=== PATIENT | female | born 1955 | race Caucasian/White ===

== ENCOUNTER 2023-11-09 12:18 | Emergency (ER) | payer MEDICARE, OTHER ==
[2023-11-09] MEDS ORDERED: fentaNYL 50 mcg/mL 1 mL Vial ONE ×4 (12:34→18:03)
[2023-11-09 13:11] LABS: #Basophils 0.2 thou/uL (0.0-0.2); #Lymphocytes 0.6 thou/uL (1.20-3.40); #Monocytes 0.6 thou/uL (0.11-0.59); #Neutrophils 9.2 thou/uL (1.40-6.50); %Basophils 1.5 % (0.0-1.0); %Lymphocytes 5.8 % (21.0-51.0); %Monocytes 5.6 % (0.0-10.0); %Neutrophils 87.1 % (42.0-75.0); Hematocrit 32.2 % (36.0-47.0); Hemoglobin 11.2 g/dL (12.0-16.0); Mean Corpuscular HGB CONC 34.9 g/dL (32.0-36.0); Mean Corpuscular Hemoglobin 32.6 pg (27.0-31.0); Mean Corpuscular Volume 93.5 fl (78.0-98.0); Platelet Count 175 10x3/uL (130-400); RBC Distribution Width 16.2 % (11.5-14.5); Red Blood Cell (RBC) Count 3.44 mill/uL (4.20-5.40); White Blood Cell (WBC) Count 10.5 10x3/uL (4.8-10.8)
[2023-11-09 13:25] LABS: ALT (SGPT) 44 U/L (8-55); AST (SGOT) 38 U/L (5-34); Albumin 4.3 g/dL (3.4-4.8); Alkaline Phosphatase 57 U/L (40-110); Anion Gap 16 mmol/L (10-20); BUN (Urea Nitrogen) 13 mg/dL (9.8-20.1); Bilirubin, Total 2.3 mg/dL (0.2-1.2); Calc. Creatinine Clearance 0 mL/min (70-130); Calcium 9.8 mg/dL (7.8-10.44); Carbon Dioxide 25 mmol/L (23-31); Chloride 97 mmol/L (98-107); Estimated GFR 99; Globulin 3.6 g/dL (2.4-3.5); Glucose 114 mg/dL (80-115); Potassium 4.4 mmol/L (3.5-5.1); Protein, Total 7.9 g/dL (5.8-8.1); Sodium 134 mmol/L (136-145)
[2023-11-09] MEDS ORDERED: Sodium Chloride 0.9% 1,000 ML ONE (14:03)
[2023-11-09 14:21] LABS: INR-International Normal Ratio 1.1; Prothrombin Time 14.2 sec (12.0-14.7)
[2023-11-09] MEDS ORDERED: Pantoprazole 40 MG VIAL ONE (17:28)
== END 2023-11-09 18:12 | disposition short-term general hospital (02) ==
LOC: MADERS 12:18
DX: S72.142A Displaced intertrochanteric fracture of left femur, initial encounter for closed fracture (principal); E80.7 Disorder of bilirubin metabolism, unspecified; F17.210 Nicotine dependence, cigarettes, uncomplicated; W18.30XA Fall on same level, unspecified, initial encounter
CPT/HCPCS: 74176; 80053; 82550; 83605; 85025; 85610; J3010; 36415; 96374; 96375; 96376; C9113; J7050

== ENCOUNTER 2024-04-25 21:25 | Emergency (ER) | payer MEDICARE, OTHER ==
[2024-04-25] MEDS ORDERED: Morphine 4 MG/ML VIAL ONE (21:55)
[2024-04-25] MEDS ORDERED: HYDROcodone/Acetaminophen 5/325 mg Tablet ONE (22:32)
== END 2024-04-25 23:00 | disposition home or self-care (01) ==
LOC: MADERS 21:25
DX: M25.562 Pain in left knee (principal); M97.02XA Periprosthetic fracture around internal prosthetic left hip joint, initial encounter; F17.210 Nicotine dependence, cigarettes, uncomplicated
CPT/HCPCS: 96374; J2272